=== PATIENT | female | born 1990 | race Caucasian/White ===

== ENCOUNTER 2018-02-27 23:15 | Emergency (ER) | payer OTHER ==
[~2018-02-27] VITALS: Ht 162.6 cm; Wt 67.2 kg
[~2018-02-27 23:15] MED LIST: ANTIVERT25 MG PO; FIORICET 50-301 EACH PO; NORCO 5/3251 TABLET PO; ZANTAC150 MG PO; ZITHROMAX Z-PA250 MG PO
[2018-02-28] MEDS ORDERED: ATIVAN0.5 MG PO (03:10)
[2018-02-28 03:52] VITALS: BP 114/71
== END 2018-02-28 03:52 | disposition home or self-care (01) ==
LOC: EME 23:15
DX: F41.0 Panic disorder [episodic paroxysmal anxiety] (principal)
CPT/HCPCS: 99281; 99284